=== PATIENT | female | born 1980 | race African-American/Black ===

== ENCOUNTER 2019-01-09 23:05 | Emergency (ER) | payer OTHER ==
[~2019-01-09] VITALS: Ht 154.9 cm; Wt 81.6 kg
[2019-01-09 23:17] VITALS: Ht 154.9 cm; Wt 81.6 kg
[2019-01-10 02:08] VITALS: BP 136/84
== END 2019-01-10 02:08 | disposition other institution (70) ==
LOC: ED 23:05
DX: I11.0 Hypertensive heart disease with heart failure (principal); I50.9 Heart failure, unspecified; Z88.8 Allergy status to other drugs, medicaments and biological substances

== ENCOUNTER 2019-01-09 23:05 | Emergency (ER) | payer OTHER | END 2019-01-10 00:30 | disposition other institution (70) | LOC: ED 23:05 | DX: Z02.89 Encounter for other administrative examinations (principal) ==